=== PATIENT | female | born 1975 | race Caucasian/White ===

== ENCOUNTER 2023-09-12 05:58 | Day surgery (SDC) | payer BC, OTHER ==
[2023-09-12] MEDS ORDERED: Lactated Ringers 1,000 ML IV ONE (07:10)
[2023-09-12] MEDS ORDERED: Lactated Ringers 1,000 ML IV SCH (07:30)
[2023-09-12] MEDS ORDERED: Versed 2 MG/2 ML Injection ONE (07:44)
[2023-09-12] MEDS ORDERED: DIPRIVAN 200 MG/20 ML IV ONE ×4 (07:44→08:30)
[2023-09-12] MEDS ORDERED: Xylocaine-Mpf 2% 5 Ml Vial ONE (07:44)
[2023-09-12 09:07] VITALS: RESP 16
[2023-09-12 09:25] VITALS: TEMP 97.8; O2SAT 97
[2023-09-12 09:29] VITALS: BP 112/64; PULSE 68
--- NOTE | 2023-09-12 15:31 | OP ---
SURGERY DATE/TIME: 09/12/2023 0748 PREOPERATIVE DIAGNOSIS: Likely irritable bowel, screening exam. POSTOPERATIVE DIAGNOSIS: Tubular adenomatous polyps in the transverse colon. PROCEDURE: Colonoscopy with polypectomy. SURGEON: Dr. Kaba. ANESTHESIA: Medications given by anesthesia department. HISTORY: The patient is a 48-year-old white female presenting now for colonoscopic evaluation. She reports she has been having problems with increasing in abdominal pain. She had problems actually for up to two years. The patient felt the need to have endoscopic evaluation. She was appraised of the risks of the procedure including the risk of perforation, phlebitis, untoward reaction to medication, bleeding and missed lesions. The patient verbalized her understanding and desired to have the procedure performed. DESCRIPTION OF PROCEDURE: The patient was given the medications by the anesthesia department. She had continuous pulse oximetry, ECG monitoring and intermittent blood pressure monitoring during the examination. She was placed in the left lateral decubitus position. A digital rectal examination was performed and revealed normal anal sphincter tone and no masses. The flexible Olympus pediatric colonoscope was used to intubate the rectum. A view of the colon was developed sequentially to the cecum. Upon insertion and withdrawal, it was noted polyps in the proximal transverse colon and mid transverse colon which were removed using polypectomy snare and retrieved for pathologic evaluation. No other mucosal lesions were encountered. The scope was removed from the patient who tolerated the procedure well and was sent back to OP recovery in good condition. The prep was noted to be fair.
== END 2023-09-12 09:32 | disposition home or self-care (01) ==
LOC: SDC 05:58
PROVIDERS: ATTEND Family Medicine
DX: Z12.11 Encounter for screening for malignant neoplasm of colon (principal); D12.3 Benign neoplasm of transverse colon
CPT/HCPCS: J2250; J2704